=== PATIENT | male | born 1985 | race Caucasian/White ===

== ENCOUNTER 2022-09-20 04:10 | Emergency (ER) | payer OTHER ==
[2022-09-20 04:28] VITALS: BP 133/88; PULSE 83; RESP 18; TEMP 98.7; BMI 20.3
== END 2022-09-20 05:10 | disposition home or self-care (01) ==
LOC: FER 04:10
DX: H02.843 Edema of right eye, unspecified eyelid (principal)
CPT/HCPCS: 99282-25